=== PATIENT | male | born 1970 | race Two or more races ===

== ENCOUNTER 2019-07-02 12:32 | Inpatient (IN) | payer OTHER ==
[~2019-07-02] VITALS: Ht 180.3 cm; Wt 97.1 kg
[2019-07-02 13:22] LABS: CLARITY URINE CLEAR (CLEAR); COLOR URINE YELLOW (YELLOW); KETONES URINE TRACE (NEGATIVE); LEUKOCYTE ESTERASE URINE NEGATIVE (NEGATIVE); NITRITE URINE NEGATIVE (NEGATIVE); OCCULT BLOOD URINE NEGATIVE (NEGATIVE); PH URINE >=9.0 (4.5-8.0); PROTEIN URINE NEGATIVE (NEGATIVE); UROBILINOGEN URINE 0.2 E.U./dL (0.2-1.0)
[2019-07-02 13:34] LABS: *BARBITURATES SCREEN URINE NEGATIVE (NEGATIVE); *BENZODIAZEPINES SCREEN URINE NEGATIVE (NEGATIVE)
[2019-07-02 13:35] LABS: *AMPHETAMINES SCREEN URINE NEGATIVE (NEGATIVE); *COCAINE SCREEN URINE NEGATIVE (NEGATIVE); METHADONE URINE SCREEN NEGATIVE (NEGATIVE); OPIATES URINE SCREEN NEGATIVE (NEGATIVE)
[2019-07-02 13:36] LABS: CANNABINOID URINE SCREEN NEGATIVE (NEGATIVE); PHENCYCLIDINE URINE SCREEN NEGATIVE (NEGATIVE)
[2019-07-02 13:54] LABS: BASOPHILS % 0.9 % (0.0-2.0); EOSINOPHILS % 0.9 % (0.0-5.0); HEMATOCRIT. 46.1 % (42.0-52.0); HEMOGLOBIN. 16.3 g/dL (14.0-18.0); LYMPHOCYTES % 28.6 % (20.0-50.0); MEAN CORPUSCULAR HEMOGLOBIN 31.1 pg (28.0-32.0); MEAN CORPUSCULAR VOLUME 88.3 fL (80.0-94.0); MEAN PLATELET VOLUME 8.1 fl (7.4-10.4); MONOCYTES % 5.3 % (2.0-8.0); NEUTROPHILS % 64.3 % (40.0-76.0); PLATELET 168 x1000/uL (130-400); RED BLOOD CELL COUNT 5.22 mill/uL (4.7-6.1); RED CELL DISTRIBUTION WIDTH 12.9 % (11.6-14.6)
[2019-07-02 14:01] LABS: PROTHROMBIN TIME 11.1 sec (9.6-11.0)
[2019-07-02 14:03] LABS: ETHANOL BLOOD < 10 mg/dL
[2019-07-02 14:11] LABS: CHLORIDE 108 mEq/L (98-107)
[2019-07-02] MEDS ORDERED: NITROGLYCERIN 0.4MG TABLET SL SL PRN (16:45)
[2019-07-02] MEDS ORDERED: ASPIRIN 81MG TABLET PO ONE (16:45)
[2019-07-02 21:50] VITALS: BP 121/80
[2019-07-03] VITALS: BP 125/84
[2019-07-03] MEDS ORDERED: DEXTROSE 50% WATER 50ML SYRINGE IV PRN (00:15)
[2019-07-03] MEDS ORDERED: ONDANSETRON HCL 4MG/2ML INJ IV PRN (00:15)
[2019-07-03] MEDS ORDERED: HYDROCODONE/ACETAMINOPHEN 5/325MG TABLET PO PRN (00:15)
[2019-07-03] MEDS ORDERED: ACETAMINOPHEN 325MG TABLET PO PRN (00:15)
[2019-07-03] MEDS ORDERED: IPRATROPIUM/ALBUTEROL 0.5-3(2.5)MG/3ML NEB HHN PRN (00:15)
[2019-07-03] MEDS ORDERED: ASPI-1497 MT (03:20)
[2019-07-03] MEDS ORDERED: GLIP10TA10 MT (03:20)
[2019-07-03] MEDS ORDERED: METO25TA6 MT (03:20)
[2019-07-03] MEDS ORDERED: AMLO5TAB88 MT (03:20)
[2019-07-03] MEDS ORDERED: DOCU-138 MT (03:20)
[2019-07-03] MEDS ORDERED: METF-416 MT (03:20)
[2019-07-03] MEDS ORDERED: ATOR10TA MT (03:20)
[2019-07-03 04:00] VITALS: BP 99/59
[2019-07-03] MEDS: BLOOD SUGAR DIAGNOSTIC STRIP TEST SCH ×2 (07:03→13:11)
[2019-07-03] MEDS: INSULIN LISPRO 100 UNITS/ML SUBCUT SCH ×2 (07:03→13:10)
[2019-07-03 08:00] VITALS: BP 125/80
[2019-07-03] MEDS ORDERED: AMLODIPINE 5MG TABLET PO SCH (09:00)
[2019-07-03] MEDS ORDERED: ENOXAPARIN 30MG/0.3ML SYR SUBCUT SCH (09:00)
[2019-07-03] MEDS ORDERED: ASPIRIN 81MG TABLET PO SCH (09:00)
[2019-07-03] MEDS ORDERED: REGADENOSON 0.4 MG/5 ML IV NR (09:30)
[2019-07-03] MEDS ORDERED: REGADENOSON 0.4 MG/5 ML IV ONE (10:27)
[2019-07-03 12:00] VITALS: BP 115/73
[2019-07-03 16:00] VITALS: BP 118/76
[2019-07-03 16:33] VITALS: BP 118/76
[2019-07-03 16:54] LABS: BASOPHILS % 1.2 % (0.0-2.0); EOSINOPHILS % 1.7 % (0.0-5.0); HEMATOCRIT. 46.8 % (42.0-52.0); HEMOGLOBIN. 16.3 g/dL (14.0-18.0); LYMPHOCYTES % 43.3 % (20.0-50.0); MEAN CORPUSCULAR HEMOGLOBIN 30.7 pg (28.0-32.0); MEAN CORPUSCULAR VOLUME 88.3 fL (80.0-94.0); MEAN PLATELET VOLUME 8.1 fl (7.4-10.4); MONOCYTES % 5.3 % (2.0-8.0); NEUTROPHILS % 48.5 % (40.0-76.0); PLATELET 149 x1000/uL (130-400); RED CELL DISTRIBUTION WIDTH 13.1 % (11.6-14.6)
[2019-07-03 17:04] LABS: CHLORIDE 107 mEq/L (98-107)
[2019-07-03 17:12] LABS: LDL CHOLESTEROL 63 mg/dL (5-100)
[2019-07-03 17:13] LABS: HDL CHOLESTEROL 73 mg/dL (40-59)
[2019-07-03] MEDS ORDERED: ZOLPIDEM TARTRATE 5MG TABLET PO PRN (21:00)
[2019-07-03] MEDS ORDERED: ATORVASTATIN CALCIUM 20MG TABLET PO SCH (21:00)
== END 2019-07-03 17:46 | disposition home or self-care (01) | DRG 206 ==
LOC: ER 12:32 → 7WST 17:44 → EDBEDREQ 19:38 → ENRESERV 20:29
PROVIDERS: ADMIT Internal Medicine; ATTEND Internal Medicine
DX: M94.0 Chondrocostal junction syndrome [Tietze] (principal); E11.9 Type 2 diabetes mellitus without complications; E66.3 Overweight; I25.2 Old myocardial infarction; E78.5 Hyperlipidemia, unspecified; I10 Essential (primary) hypertension; Z68.29 Body mass index [BMI] 29.0-29.9, adult; K21.9 Gastro-esophageal reflux disease without esophagitis
CPT/HCPCS: 36415; 71045; 74176; 78452; 80053; 80061; 80305; 80320; 81003; 82962; 83036; 83880; 84484; 85025; 93005; 93017; 93306; 99285; A9500; J2785; G0480